=== PATIENT | male | born 1980 | race Caucasian/White ===

== ENCOUNTER 2016-09-13 23:59 | Emergency (ER) | payer OTHER ==
[~2016-09-13] VITALS: Ht 172.7 cm; Wt 70.5 kg
[~2016-09-13 23:59] MED LIST: DEXT5 PO; LORTS PO; TRAM50 PO; [UNRECOGNIZED DRUG - CODE] PO
[2016-09-14 00:01] VITALS: BP 132/82; PULSE 86; RESP 16; TEMP 97.3; O2SAT 99
[2016-09-14] MEDS ORDERED: SULFAMETHOXAZOLE-TRIMETHOPRIM DS 800-160 MG TAB PO ONE (00:15)
[2016-09-14] MEDS ORDERED: BACT800T5 PO (00:15)
[2016-09-14] MEDS ORDERED: CEPH500C PO (00:15)
[2016-09-14] MEDS ORDERED: CEPHALEXIN MONOHYDRATE 500 MG CAP PO ONE (00:15)
--- NOTE | 2016-09-14 00:18 | PD ---
HPI Chief Complaint: Skin Problem Time Seen by Provider: 00:15 Travel History International Travel<30 days: No Contact w/Intl Traveler<30days: No Traveled to known affect area: No History of Present Illness HPI 36-year-old white male presents to emergency Department with complaints of a infection to his left buttocks over the past 3-5 days. He states that he has been squeezing the area but has only gotten clear out of it. The areas become increasingly painful, red and swollen. Symptoms are mild to moderate. He denies any fever or chills. No nausea vomiting. No history of skin infections in the past. No alleviating factors. PFSH Past Medical History Narrative Medical ADHD ADHD: Yes Diminished Hearing: No Endocrine: Yes (HYPOGLYCEMIA) Tetanus Vaccination: < 5 Years Past Surgical History Surgical History: No Previous Surgery Social History Alcohol Use: Yes Tobacco Use: Yes (1/2 PPD) Substance Use: No Allergies-Medications (Allergen,Severity, Reaction): Coded Allergies: Aspirin (Verified Allergy, Severe, MAKES EVERYTHING WORSE, 09/14/16) Reported Meds & Prescriptions Reported Meds & Active Scripts Active Ultram (Tramadol HCl) 50 Mg Tab 50 Mg PO Q4-6HPRN FOR PAIN Lortab Elixir 7.5/500 Per 15 Ml (Acetaminophen/Hydrocodone Bitart) Elix 10 Ml PO Q6HPRN 10 Days FOR PAIN Reported Dexedrine (Dextroamphetamine Sulfate) 10 Mg Cap 10 Mg PO DAILY Dexedrine (Dextroamphetamine Sulfate) 5 Mg Tab 5 Mg PO DAILY Dexedrine (Dextroamphetamine Sulfate) 10 Mg Cap 10 Mg PO DAILY Dexedrine (Dextroamphetamine Sulfate) 5 Mg Tab 5 Mg PO DAILY Review of Systems Except as stated in HPI: all other systems reviewed are Neg Physical Exam Narrative GENERAL: This is a well-nourished, well-developed patient, in no apparent distress. SKIN: Patient has a 4 x 4 area of erythema to the left buttocks. There is a 2 x 2 area of central induration. The central induration has excoriations on it from the patient's squeezing it. There is no fluctuance or pointing. No drainage. Warm and dry. HEAD: Atraumatic. Normocephalic. EYES: PERRL, EOMI, no discharge or injection. No scleral icterus. EARS: Clear NOSE: Nasal turbinates appear normal. THROAT: Mucosa pink and moist. Airway patent. NECK: Trachea midline. supple, moves head freely. LUNGS: Clear to auscultation. CV: Regular in rhythm. ABDOMEN: Soft nontender. EXT: No clubbing cyanosis or edema. Data Data Last Documented VS Vital Signs Date Time Temp Pulse Resp B/P Pulse Ox O2 Delivery O2 Flow Rate FiO2 09/14/16 00:01 97.3 86 16 132/82 99 Room Air Orders Cephalexin (Keflex) (09/14/16 00:15) Sulfamet-Trimeth Ds 800-160 Mg (Bactrim (09/14/16 00:15) MDM Medical Decision Making Medical Screen Exam Complete: Yes Emergency Medical Condition: Yes Medical Record Reviewed: Yes Differential Diagnosis MDM: High Differential diagnoses: Abscess, folliculitis, cellulitis, lymphangitis, abrasion, contact dermatitis Narrative Course Patient's given cephalexin 500 and Septra DS by mouth. The cyst left buttock abscess with cellulitis Diagnosis Primary Impression: left buttock abscess with cellulitis Patient Instructions: General Instructions Departure Forms: Tests/Procedures, Work Release Special Instructions: No work 2 days. Additional Instructions: Rest. Elevation. keep clean and dry. Warm compresses. No squeezing. Daily wound care with soap, water and Neosporin. Three Advil every 6 hours. Cephalexin and Bactrim DS Follow-up with a primary care doctor in one week. Return to the ER for any problems. Med/Other Pt SpecificInfo: Prescription(s) given Scripts Cephalexin 500 Mg [id number] Mg PO Q6H #40 CAP Prov:Jb Hickman MD 09/14/16 Sulfamethoxazole-Trimethoprim (Bactrim DS)800-160 Mg Tab1 Tab PO BID #20 TAB Prov:Jb Hickman MD 09/14/16 Disposition: 01 DISCHARGE HOME Condition: Stable Erwin Tolliver Sep 14, 2016 00:18
== END 2016-09-14 00:49 | disposition home or self-care (01) ==
LOC: NEPK 23:59
DX: L02.31 Cutaneous abscess of buttock (principal); L03.317 Cellulitis of buttock; F17.210 Nicotine dependence, cigarettes, uncomplicated
CPT/HCPCS: 99284